=== PATIENT | male | born 1960 | race African-American/Black ===

== ENCOUNTER 2017-01-11 15:01 | Emergency (ER) | payer OTHER ==
[~2017-01-11 15:01] MED LIST: ASAB PO; CENTRUM TAB1 TAB PO; FISH OIL PO; GLUCCHONDR PO; K500 PO; MAGNESIUM OTC PO; MOBIC15 MG PO; MYCOSCROI TOP; NORV5 PO; POTASSIUM OTC PO; PROBIOTIC PO; SUPER B-100 PO; ULTRAM50 PO; UNKNOWN ANTIBIOTIC; VITAMIN B12 PO; VITAMIN C PO; VITAMIN D PO; VITAMIN E PO; [UNRECOGNIZED DRUG - OTHER] TOP
== END 2017-01-11 15:45 | disposition home or self-care (01) ==
LOC: ER 15:01
DX: S16.1XXA Strain of muscle, fascia and tendon at neck level, initial encounter (principal); S39.012A Strain of muscle, fascia and tendon of lower back, initial encounter; S86.911A Strain of unspecified muscle(s) and tendon(s) at lower leg level, right leg, initial encounter; S40.011A Contusion of right shoulder, initial encounter; M25.522 Pain in left elbow; I10 Essential (primary) hypertension; Z88.0 Allergy status to penicillin; Z88.2 Allergy status to sulfonamides; Z79.82 Long term (current) use of aspirin; Z79.899 Other long term (current) drug therapy; V89.2XXA Person injured in unspecified motor-vehicle accident, traffic, initial encounter
CPT/HCPCS: 72125; 72131; 73030-RT; 73080-LT; 73560-RT; 96372; 99284; A9270-GY; J1885; J2800

== ENCOUNTER 2017-02-20 17:25 | Emergency (ER) | payer BC | END 2017-02-20 21:27 | disposition home or self-care (01) | LOC: ER 17:25 | DX: R51 Headache (principal); Z87.891 Personal history of nicotine dependence; I10 Essential (primary) hypertension; Z88.0 Allergy status to penicillin; Z88.2 Allergy status to sulfonamides; Z79.899 Other long term (current) drug therapy; Z79.82 Long term (current) use of aspirin | CPT/HCPCS: 70450; 96372; 99284; J1200; J1885; J2765 ==